=== PATIENT | female | born 1990 | race Caucasian/White ===

== ENCOUNTER 2019-03-20 17:39 | Emergency (ER) | payer BC, OTHER ==
--- NOTE | 2019-03-20 17:50 | UC ---
Abdominal Pain Female HPI - HPI Summary HPI Summary: Patient is a 28yo female presenting with abdominal pain and diarrhea x3 days. 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 Patient states that she was given "an antibiotic of some sort for one week back in December and her symptoms resolved." States that the amoeba was laboratory confirmed. Patient states similar symptoms began 3 days ago including intermittent cramping that comes with chills and then "loose stools." Denies pain or worsening with eating. Denies blood in the stool. Denies mucus in stool. Denies any visible worms in the stool. Denies painful defecation. Denies nausea and vomiting. Denies urinary symptoms. States she is eating and drinking normally. She denies fevers and fatigue. She does state that Imodium helps relieve symptoms. Denies abdominal pain currently. - History of Current Complaint Stated Complaint: ABD PAIN, GI ISSUE Hx Obtained From: Patient Onset/Duration: Sudden Onset, Lasting Days Allergies/Adverse Reactions: Allergies Allergy/AdvReac Type Severity Reaction Status Date / Time No Known Allergies Allergy Verified 03/20/19 17:56 Home Medications: Home Medications NK [No Home Medications Reported] 03/20/19 [History Confirmed 03/20/19] PMH/Surg Hx/FS Hx/Imm Hx Previously Healthy: Yes GI/ History: Other - h/o amoeba infection 12/19 while in [facility] in [place] [facility] - Family History Known Family History: Positive: Non-Contributory - Social History Alcohol Use: None Substance Use Type: None Smoking Status (MU): Never Smoked Tobacco Review of Systems All Other Systems Reviewed And Are Negative: Yes Constitutional: Positive: Chills Skin: Positive: Negative ENT: Positive: Negative Respiratory: Positive: Negative Cardiovascular: Positive: Negative Gastrointestinal: Positive: Abdominal Pain - intermittent "abdominal cramping", Diarrhea - "loose stool". Negative: Vomiting, Nausea Genitourinary: Positive: Negative Musculoskeletal: Positive: Negative. Negative: Myalgia Neurological: Positive: Negative Physical Exam Triage Information Reviewed: Yes Appearance: Well-Appearing, No Pain Distress, Well-Nourished Vital Signs: Vital Signs (72 hours) 03/20/19 17:47 Temperature 98.6 F Pulse Rate 65 Respiratory 16 Rate Blood Pressure 114/73 (mmHg) O2 Sat by Pulse 97 Oximetry Vital Signs Reviewed: Yes Eyes: Positive: Conjunctiva Clear ENT: Positive: Hearing grossly normal Neck: Positive: Supple Respiratory Exam: Normal Respiratory: Positive: Lungs clear, Normal breath sounds, No respiratory distress, No accessory muscle use. Negative: Crackles, Rhonchi, Stridor, Wheezing Cardiovascular Exam: Normal Cardiovascular: Positive: RRR Abdomen Description: Positive: No Organomegaly, Soft. Negative: Nontender - mild tenderness to palpation of umbilical region, CVA Tenderness (R), CVA Tenderness (L), Distended, Guarding, McBurney's Point Tenderness Bowel Sounds: Positive: Present - BS x4 Neurological: Positive: Alert Psychological: Positive: Age Appropriate Behavior Skin Exam: Normal - no erythema or ecchymosis Abd Pain Female Course/Dx - Course Course Of Treatment: Patient brought her stool sample from home. Sent stool for culture, including O& P screen with microscopic, c. diff, and lactoferrin. I spoke with micro lab and they said they would make note to include microscopic with screen for the patient since the order was unavailable in my computer. Informed patient that she would be notified with any positive results warranting treatment. Instructed patient to continue with symptomatic treatment and to go to ED with any new or worsening symptoms. Patient VS normal and in no pain distress. - Differential Dx/Diagnosis Provider Diagnosis: Acute diarrhea, Central abdominal pain Discharge ED - Sign-Out/Discharge Documenting (check all that apply): Patient Departure All imaging exams completed and their final reports reviewed: No Studies - Discharge Plan Condition: Stable Disposition: HOME Patient Education Materials: Acute Diarrhea (ED), Acute Abdominal Pain (ED) Additional Instructions: As discussed, your stool has been sent for culture. You will be notified with any positive results warranting treatment. You may continue to take imodium as directed. Increase your fluid and fiber intake. Go to the emergency room if you experience any new or worsening symptoms, including severe abdominal pain, fever, nausea and vomiting, or blood in the stool. - Billing Disposition and Condition Condition: STABLE Disposition: Home
[2019-03-20 17:56] VITALS: BP 114/73
== END 2019-03-20 19:02 | disposition home or self-care (01) ==
LOC: UCEAST 17:39
DX: R19.7 Diarrhea, unspecified (principal); R10.9 Unspecified abdominal pain; R68.83 Chills (without fever); Z86.19 Personal history of other infectious and parasitic diseases
CPT/HCPCS: 82270; 83630; 87045; 87046; 87077; 87177; 87209; 87328; 87329; 87493; 87899; 99201; G0463